=== PATIENT | female | born 1945 | race Caucasian/White ===

== ENCOUNTER 2020-05-19 12:58 | Emergency (ER) | payer MEDICARE ==
[~2020-05-19 12:58] MED LIST: AUGMENTIN 875-1 EACH PO; BROMFED DM COU473 ML PO; CIPRO500 MG PO; FLAGYL500 MG PO; FOLIC ACID1 MG PO; GABAPENTIN300 MG PO; OMEPRAZOLE20 MG PO
[2020-05-19 14:26] LABS: HEMOGLOBIN 11.2 gm/dl (12.3-15.3); RED BLOOD COUNT 3.64 M/UL (4.00-5.10); WHITE BLOOD COUNT 6.9 K/UL (4.5-11.0)
[2020-05-19] MEDS ORDERED: ZOFRAN ODT 4 MG4 MG GT (17:03)
[2020-05-22] MEDS ORDERED: HYDROXYCHLOROQ200 MG PO (01:27)
[2020-05-22] MEDS ORDERED: HYDROCHLOROTHIA25 MG PO (01:28)
[2020-05-22] MEDS ORDERED: VASOTEC 10 MG T10 MG PO (01:29)
[2020-05-22] MEDS ORDERED: DITROPAN XL10 MG PO (01:29)
[2020-05-22] MEDS ORDERED: IMURAN50 MG PO (01:30)
[2020-05-22] MEDS ORDERED: PREDNISONE 10 M10 MG PO (01:32)
[2020-05-22] MEDS ORDERED: TYLENOL EXTRA500 MG PO (01:34)
[2020-05-22] MEDS ORDERED: CELEXA40 MG PO (01:39)
[2020-05-22] MEDS ORDERED: LUNESTA3 MG PO (01:39)
[2020-05-22] MEDS ORDERED: MECLIZINE HCL25 MG PO (01:40)
[2020-05-22] MEDS ORDERED: REQUIP XL2 MG PO (01:41)
[2020-05-22] MEDS ORDERED: IBU800 MG PO (01:42)
[2020-05-22] MEDS ORDERED: CYCLOBENZAPRINE10 MG PO (01:43)
[2020-05-22] MEDS ORDERED: SIMVASTATIN20 MG PO (01:44)
== END 2020-05-19 17:30 | disposition home or self-care (01) ==
LOC: ER1 12:58
PROVIDERS: Family Medicine
DX: U07.1 COVID-19 (principal); I10 Essential (primary) hypertension; Z90.710 Acquired absence of both cervix and uterus
CPT/HCPCS: 71045; 80053; 81001; 83615; 85025; 86140; 93005; 96374; 99284; J2405; J7030

== ENCOUNTER 2020-05-22 10:03 | Inpatient (IN) | payer MEDICARE ==
[~2020-05-22] VITALS: Ht 152.4 cm; Wt 73.9 kg
[~2020-05-22 10:03] MED LIST changes: +CELEXA40 MG PO; +CYCLOBENZAPRINE10 MG PO; +DITROPAN XL10 MG PO; +HYDROCHLOROTHIA25 MG PO; +HYDROXYCHLOROQ200 MG PO; +IBU800 MG PO; +IMURAN50 MG PO; +LUNESTA3 MG PO; +MECLIZINE HCL25 MG PO; +PREDNISONE 10 M10 MG PO; +REQUIP XL2 MG PO; +SIMVASTATIN20 MG PO; +TYLENOL EXTRA500 MG PO; +VASOTEC 10 MG T10 MG PO; +ZOFRAN ODT 4 MG4 MG GT
[2020-05-22 10:56] LABS: HEMOGLOBIN 10.3 gm/dl (12.3-15.3); RED BLOOD COUNT 3.4 M/UL (4.00-5.10)
[2020-05-22 10:57] LABS: WHITE BLOOD COUNT 12.5 K/UL (4.5-11.0)
[2020-05-22 11:23] LABS: BUN/CREATININE RATIO 23 (0-10)
[2020-05-22] MEDS ORDERED: ESTRADIOL42.5 GM TOP (13:17)
[2020-05-22] MEDS ORDERED: ZOFRAN4 MG PO (13:28)
[2020-05-22] MEDS ORDERED: ASPIRIN EC81 MG PO (15:53)
[2020-05-23 03:42] LABS: HEMOGLOBIN 9.2 gm/dl (12.3-15.3)
[2020-05-23 03:46] LABS: RED BLOOD COUNT 2.97 M/UL (4.00-5.10)
[2020-05-24 02:43] LABS: HEMOGLOBIN 8.7 gm/dl (12.3-15.3); RED BLOOD COUNT 2.87 M/UL (4.00-5.10); WHITE BLOOD COUNT 9.7 K/UL (4.5-11.0)
[2020-05-24 03:24] LABS: BUN/CREATININE RATIO 42 (0-10)
[2020-05-26 03:36] LABS: RED BLOOD COUNT 2.68 M/UL (4.00-5.10); WHITE BLOOD COUNT 8.7 K/UL (4.5-11.0)
[2020-05-26 03:59] LABS: BUN/CREATININE RATIO 59 (0-10)
[2020-05-27] MEDS ORDERED: DECADRON6 MG PO (11:25)
--- NOTE | 2020-05-27 14:49 | NUR ---
PATIENTS ROOM SAT IS 86-88% WHEN PATIENT IS UP AND MOVING.
== END 2020-05-27 17:27 | disposition home or self-care (01) | DRG 177 ==
LOC: ER1 10:03 → PROG CARE 12:02 → CDU 12:02 → PROG CARE 19:31
PROVIDERS: Emergency Medicine; Internal Medicine Pulmonary Disease; Physician Assistant; ADMIT Internal Medicine
PROC: 8E0ZXY6 Isolation (ICD-10-PCS; principal; 2020-05-22)
PROC: XW033E5 Introduction of Remdesivir Anti-infective into Peripheral Vein, Percutaneous Approach, New Technology Group 5 (ICD-10-PCS; 2020-05-22)
PROC: B24BZZZ Ultrasonography of Heart with Aorta (ICD-10-PCS; 2020-05-23)
PROC: XW13325 Transfusion of Convalescent Plasma (Nonautologous) into Peripheral Vein, Percutaneous Approach, New Technology Group 5 (ICD-10-PCS; 2020-05-24)
DX: U07.1 COVID-19 (principal); J12.82 Pneumonia due to coronavirus disease 2019; J96.01 Acute respiratory failure with hypoxia; J15.9 Unspecified bacterial pneumonia; E87.1 Hypo-osmolality and hyponatremia; E86.0 Dehydration; E86.1 Hypovolemia; Z86.73 Personal history of transient ischemic attack (TIA), and cerebral infarction without residual deficits; E78.5 Hyperlipidemia, unspecified; F41.1 Generalized anxiety disorder; M32.9 Systemic lupus erythematosus, unspecified; Z90.49 Acquired absence of other specified parts of digestive tract; Z90.710 Acquired absence of both cervix and uterus; I10 Essential (primary) hypertension; Z79.82 Long term (current) use of aspirin; Z79.899 Other long term (current) drug therapy; Z87.891 Personal history of nicotine dependence
CPT/HCPCS: ECHO; 36415; 36600; 71045; 80048; 80053; 81001; 82436; 82550; 82553; 82728; 82803; 83540; 83550; 83605; 83615; 83690; 83874; 83880; 83935; 84133; 84300; 84484; 85025; 85379; 86140; 86900; 86901; 86927; 87040; 90471; 93005; 93306; 94640; 94760; 96365; 96372; 96374; 96375; 96376; 99284; 99285; J0696; J1100; J1650; J1756; J2405; J2550; J7030; J7040; J7070; Q9967; U0002

== ENCOUNTER → 2021-05-06 | Outpatient (CLI) | payer MEDICARE ==
[~2021-05-06] MED LIST changes: +ASPIRIN EC81 MG PO; +BIOTIN PO; +DECADRON6 MG PO; +ESTRADIOL CREAM VG; +ESTRADIOL42.5 GM TOP; +IBUPROFEN200 MG PO; +LEXAPRO10 MG PO; +LORATADINE10 MG PO; +POTASSIUM PO; +PREDNISONE5 MG PO; +ROPINIROLE HCL2 M1 PO; +TYLENOL 8 HOUR650 MG PO; +VASOTEC5 MG PO; +ZOCOR20 MG PO; +ZOFRAN4 MG PO
[2021-05-06 11:11] LABS: RED BLOOD COUNT 4.11 M/UL (4.00-5.10)
[2021-05-06 11:33] LABS: BUN/CREATININE RATIO 27 (0-10)
== END ==
LOC: OPSV2 10:00 → EDSTATUS 10:00 → OPSV2 10:25
PROVIDERS: Orthopaedic Surgery
DX: Z01.818 Encounter for other preprocedural examination (principal); M17.11 Unilateral primary osteoarthritis, right knee
CPT/HCPCS: 36415; 80048; 85025; 93005

== ENCOUNTER → 2021-05-18 | Outpatient (CLI) | payer MEDICARE ==
[~2021-05-18] MED LIST changes: +HYDROCODON-ACE1 EAC2 PO
[2021-05-18 13:23] LABS: BUN/CREATININE RATIO 24 (0-10)
== END ==
LOC: LAB 12:39
PROVIDERS: Orthopaedic Surgery
DX: Z01.812 Encounter for preprocedural laboratory examination (principal)
CPT/HCPCS: 36415; 80048; 86850; 86900; 86901

== ENCOUNTER → 2021-05-19 | Day surgery (SDC) | payer MEDICARE ==
[~2021-05-19] VITALS: Ht 152.4 cm; Wt 74.4 kg
== END | disposition home or self-care (01) ==
LOC: EDSTATUS 07:30 → OR 07:30
DX: M17.11 Unilateral primary osteoarthritis, right knee (principal); G89.29 Other chronic pain; I10 Essential (primary) hypertension; E78.5 Hyperlipidemia, unspecified; M32.9 Systemic lupus erythematosus, unspecified; M06.9 Rheumatoid arthritis, unspecified; G62.9 Polyneuropathy, unspecified; G25.81 Restless legs syndrome; Z87.891 Personal history of nicotine dependence; Z79.82 Long term (current) use of aspirin; Z79.899 Other long term (current) drug therapy; Z20.822 Contact with and (suspected) exposure to COVID-19
CPT/HCPCS: 73560; 97116; 97161; 97165; C1776; J0690; J1100; J1170; J2250; J2405; J2704; J2795; J3010; J7030; J7120

== ENCOUNTER 2021-09-20 11:21 | Emergency (ER) | payer MEDICARE ==
[2021-09-20 12:04] LABS: HEMOGLOBIN 8.7 gm/dl (12.3-15.3); RED BLOOD COUNT 3.61 M/UL (4.00-5.10); WHITE BLOOD COUNT 7.4 K/UL (4.5-11.0)
[2021-09-20 12:28] LABS: BUN/CREATININE RATIO 16 (0-10)
[2021-09-20] MEDS ORDERED: ONDANSETRON ODT4 MG SL (15:19)
[2021-09-20] MEDS ORDERED: MECLIZINE HCL25 MG PO (15:19)
== END 2021-09-20 15:37 | disposition home or self-care (01) ==
LOC: ER1 11:21
DX: D64.9 Anemia, unspecified (principal); R55 Syncope and collapse; R05.9 Cough, unspecified; R42 Dizziness and giddiness; I10 Essential (primary) hypertension; Z86.73 Personal history of transient ischemic attack (TIA), and cerebral infarction without residual deficits; Z86.16 Personal history of COVID-19; Z90.49 Acquired absence of other specified parts of digestive tract; Z90.89 Acquired absence of other organs; Z90.710 Acquired absence of both cervix and uterus
CPT/HCPCS: 70450; 71045; 80053; 81001; 82550; 82553; 84484; 85025; 87086; 93005; 96361; 96374; 99284; J2405